=== PATIENT | female | born 1970 | race African-American/Black ===

== ENCOUNTER 2021-07-29 04:13 | Day surgery (SDC) | payer OTHER ==
[2021-07-24 10:47] VITALS: BMI 36.4
[2021-07-29] MEDS ORDERED: oxyCODONE HCL 5 MG TABLET PO PRN (09:32)
[2021-07-29] MEDS ORDERED: IBUPROFEN 400 MG TABLET (FP) PO PRN (09:32)
[2021-07-29] MEDS ORDERED: ACETAMINOPHEN 325 MG TABLET (FP) PO PRN (09:32)
[2021-07-29] MEDS ORDERED: MIDAZOLAM HCL 2 MG/2 ML SINGLE DOSE VIAL ONE (10:13)
[2021-07-29] MEDS ORDERED: DEXAMETHASONE SOD PHOSPHATE 4 MG/1 ML VIAL ONE (10:13)
[2021-07-29 13:39] VITALS: BP 159/72; PULSE 54; TEMP 97.2
== END 2021-07-29 13:25 | disposition home or self-care (01) ==
LOC: JASU-SURG 04:13
PROVIDERS: ATTEND Obstetrics & Gynecology
PROC: 0UDB7ZZ Extraction of Endometrium, Via Natural or Artificial Opening (ICD-10-PCS; principal; 2021-07-29 09:30)
PROC: 0UJD8ZZ Inspection of Uterus and Cervix, Via Natural or Artificial Opening Endoscopic (ICD-10-PCS; 2021-07-29 09:30)
DX: N93.9 Abnormal uterine and vaginal bleeding, unspecified (principal)
CPT/HCPCS: 81025; 88305-TC; 94760